=== PATIENT | male | born 1970 | race Caucasian/White ===

== ENCOUNTER 2017-11-09 10:36 | Emergency (ER) | payer SELFPAY ==
[~2017-11-09] VITALS: Ht 182.9 cm; Wt 136.6 kg
[2017-11-09 10:38] VITALS: BP 165/85; PULSE 96; RESP 20; TEMP 102.8; O2SAT 95
--- NOTE | 2017-11-09 10:59 | PD ---
HPI Chief Complaint: Cold / Flu Symptoms Time Seen by Provider: 10:49 Travel History International Travel<30 days: No Contact w/Intl Traveler<30days: No Traveled to known affect area: No History of Present Illness HPI This 47-year-old male complaining of fever in cough. Abdomen sick for about 2 days. He is having some sharp chest pain it is worse when he coughs. Has been taking [id number] Delsym for cough without much response. He has no history of hypertension or diabetes. He has never smoked. He is complaining of generalized weakness and fever. PFSH Past Medical History Anemia: Yes Arthritis: Yes Asthma: No Autoimmune Disease: No Blood Disorders: No Anxiety: Yes Depression: Yes Heart Rhythm Problems: No Cancer: No Cardiovascular Problems: No High Cholesterol: No Chemotherapy: No Chest Pain: No Congestive Heart Failure: No COPD: No Cerebrovascular Accident: No Diabetes: No Diminished Hearing: No Endocrine: No Gastrointestinal Disorders: Yes (HIATAL HERNIA) GERD: Yes Glaucoma: No Genitourinary: No Headaches: Yes Hepatitis: No Hiatal Hernia: No Hypertension: No Immune Disorder: Yes (was on prednisone 5x in the last year for pnuemonia) Kidney Stones: No Musculoskeletal: Yes (ARTHROSCOPY RIGHT KNEE & LEFT SHOULDER) Respiratory: Yes (Chronic Bronchitis, Pneumonia ) Migraines: Yes Myocardial Infarction: No Radiation Therapy: No Renal Failure: No Seizures: No Sleep Apnea: Yes Thyroid Disease: No Ulcer: No Past Surgical History Abdominal Surgery: Yes AICD: No Appendectomy: Yes Cardiac Surgery: No Cholecystectomy: Yes Ear Surgery: No Endocrine Surgery: No Eye Surgery: No Genitourinary Surgery: No Gynecologic Surgery: No Joint Replacement: No Oral Surgery: Yes (nose surgery; WISDOM TEETH REMOVED) Pacemaker: No Thoracic Surgery: No Other Surgery: Yes (SURGERY TO OPEN SEPTUM MORE) Social History Alcohol Use: No Tobacco Use: No Substance Use: No Allergies-Medications (Allergen,Severity, Reaction): Coded Allergies: alcohol (Verified Allergy, Intermediate, Anaphylaxis, 11/09/17) bee venom protein (honey bee) (Unverified Allergy, Mild, Anaphylaxis, 11/09) sunscreen (Unverified Allergy, Unknown, Psychosis, 11/09/17) Instant Dry Sunscreen Uncoded Allergies: conch (Adverse Reaction, Intermediate, N&V., 11/09/17) Reported Meds & Prescriptions Reported Meds & Active Scripts Active No Active Prescriptions or Reported Medications Review of Systems General / Constitutional: Positive: Fever, Chills HENT: Positive: Headaches Cardiovascular: Positive: Chest Pain or Discomfort, No: Palpitations, Irregular Rhythm Respiratory: Positive: Cough Gastrointestinal: Positive: Nausea Genitourinary: No: Urgency, Frequency Skin: No Rash, No Itching Neurologic: Positive: Weakness Psychiatric: No: Anxiety, Depression Hematologic/Lymphatic: No: Easy Bruising Physical Exam Narrative GENERAL: Well-developed male. Temperature 102.8 SKIN: Focused skin assessment warm/dry. HEAD: Atraumatic. Normocephalic. EYES: Pupils equal and round. No scleral icterus. No injection or drainage. ENT: No nasal bleeding or discharge. Mucous membranes pink and moist. NECK: Trachea midline. No JVD. CARDIOVASCULAR: Regular rate and rhythm. No murmur appreciated. RESPIRATORY: No accessory muscle use. Clear to auscultation. Breath sounds equal bilaterally. GASTROINTESTINAL: Abdomen soft, non-tender, nondistended. Hepatic and splenic margins not palpable. MUSCULOSKELETAL: No obvious deformities. No clubbing. No cyanosis. No edema. NEUROLOGICAL: Awake and alert. No obvious cranial nerve deficits. Motor grossly within normal limits. Normal speech. PSYCHIATRIC: Appropriate mood and affect; insight and judgment normal. Data Data Last Documented VS Vital Signs Date Time Temp Pulse Resp B/P (MAP) Pulse Ox O2 Delivery O2 Flow Rate FiO2 11/09/17 12:13 100.0 88 16 137/77 (97) 97 Room Air Orders Orders Electrocardiogram (11/09/17 10:54) Complete Blood Count With Diff (11/09/17 10:54) Comprehensive Metabolic Panel (11/09/17 10:54) Troponin I (11/09/17 10:54) Magnesium (Mg) (11/09/17 10:54) Sodium Chlor 0.9% 1000 Ml Inj (Ns 1000 M (11/09/17 11:00) Sodium Chlor 0.9% 1000 Ml Inj (Ns 1000 M (11/09/17 11:00) Ketorolac Inj (Toradol Inj) (11/09/17 11:00) Acetaminophen (Tylenol) (11/09/17 11:00) Influenzae A/B Antigen (11/09/17 10:56) Chest, Single Ap (11/09/17 11:33) Ondansetron Inj (Zofran Inj) (11/09/17 13:00) Hydromorphone Pf Inj (Dilaudid Pf Inj) (11/09/17 13:00) Oseltamivir (Tamiflu) (11/09/17 13:00) Labs Laboratory Tests Test 11/09/17 11:15 White Blood Count 5.9 TH/MM3 Red Blood Count 5.19 MIL/MM3 Hemoglobin 15.4 GM/DL Hematocrit 46.5 % Mean Corpuscular Volume 89.7 FL Mean Corpuscular Hemoglobin 29.8 PG Mean Corpuscular Hemoglobin Concent 33.2 % Red Cell Distribution Width 13.2 % Platelet Count 181 TH/MM3 Mean Platelet Volume 7.9 FL Neutrophils (%) (Auto) 68.8 % Lymphocytes (%) (Auto) 15.8 % Monocytes (%) (Auto) 14.2 % Eosinophils (%) (Auto) 0.2 % Basophils (%) (Auto) 1.0 % Neutrophils # (Auto) 4.1 TH/MM3 Lymphocytes # (Auto) 0.9 TH/MM3 Monocytes # (Auto) 0.8 TH/MM3 Eosinophils # (Auto) 0.0 TH/MM3 Basophils # (Auto) 0.1 TH/MM3 CBC Comment DIFF FINAL Differential Comment Blood Urea Nitrogen 11 MG/DL Creatinine 1.10 MG/DL Random Glucose 109 MG/DL Total Protein 7.8 GM/DL Albumin 3.5 GM/DL Calcium Level 8.5 MG/DL Magnesium Level 1.7 MG/DL Alkaline Phosphatase 57 U/L Aspartate Amino Transf (AST/SGOT) 64 U/L Alanine Aminotransferase (ALT/SGPT) 93 U/L Total Bilirubin 0.4 MG/DL Sodium Level 137 MEQ/L Potassium Level 3.5 MEQ/L Chloride Level 101 MEQ/L Carbon Dioxide Level 26.6 MEQ/L Anion Gap 9 MEQ/L Estimat Glomerular Filtration Rate 72 ML/MIN Troponin I LESS THAN 0.02 NG/ML MDM Medical Decision Making Medical Screen Exam Complete: Yes Emergency Medical Condition: Yes Medical Record Reviewed: Yes Differential Diagnosis Differential includes influenza, pneumonia, chest pain Narrative Course EKG shows normal sinus rhythm. He did have quite a high fever complaint of pleuritic chest pain. Chest x-rays negative for pneumonia. He does have diffuse myalgias also I believe he has influenza. His flu test as negative but I am going to put him on Tamiflu in also prescribed some medication for his pleuritic pain. Tylenol an Toradol has not provided much relief Diagnosis Primary Impression: Influenza Additional Instructions: Tylenol every 4 hours for fever, ibuprofen every 6 hours for fever Scripts Hydrocodone-Acetaminophen (Hydrocodone-Acetaminophen) 7.5-300 Mg Tab 1 TAB PO Q4H Y for PAIN, #10 TAB 0 Refills Prov: Bar Hernandes MD 11/09/17 Oseltamivir (Tamiflu) 75 Mg Cap 75 MG PO BID for Mgmt Viral Infection for 5 Days, #10 CAP 0 Refills Prov: Bar Hernandes MD 11/09/17 Disposition: 01 DISCHARGE HOME Condition: Stable Bar Hernandes MD Nov 09, 2017 10:59
[2017-11-09] MEDS ORDERED: KETOROLAC TROMETHAMINE 30 MG/ML (IVP) VIAL IV PUSH ONE (11:00)
[2017-11-09] MEDS ORDERED: ACETAMINOPHEN 500 MG CPLT PO ONE (11:00)
[2017-11-09] MEDS ORDERED: SODIUM CHLOR 0.9% 1000 ML INJ 1,000 ML IV ONE ×2 (11:00)
[2017-11-09 11:21] LABS: AUTOMATED NEUTROPHIL # 4.1 TH/MM3 (1.8-7.7); BASOPHIL # 0.1 TH/MM3 (0-0.2); EOSINOPHIL % 0.2 % (0.0-4.0); HEMATOCRIT 46.5 % (39.0-51.0); HEMOGLOBIN 15.4 GM/DL (13.0-17.0); LYMPH % 15.8 % (9.0-44.0); LYMPHOCYTE # 0.9 TH/MM3 (1.0-4.8); MEAN CELL VOLUME 89.7 FL (80.0-100.0); MEAN CORPUSCULAR HEMOGLOBIN 29.8 PG (27.0-34.0); MEAN CORPUSCULAR HGB CONC 33.2 % (32.0-36.0); MEAN PLATELET VOLUME 7.9 FL (7.0-11.0); MONO % 14.2 % (0.0-8.0); MONOCYTE # 0.8 TH/MM3 (0-0.9); NEUT % 68.8 % (16.0-70.0); PLATELET COUNT 181 TH/MM3 (150-450); RED BLOOD COUNT 5.19 MIL/MM3 (4.50-5.90); RED CELL DISTRIBUTION WIDTH 13.2 % (11.6-17.2); WHITE BLOOD COUNT 5.9 TH/MM3 (4.0-11.0)
[2017-11-09 11:27] LABS: CHLORIDE 101 MEQ/L (98-107); SODIUM (NA) 137 MEQ/L (136-145)
[2017-11-09 11:30] LABS: CALCIUM 8.5 MG/DL (8.5-10.1)
[2017-11-09 11:31] LABS: ALBUMIN 3.5 GM/DL (3.4-5.0); BICARBONATE 26.6 MEQ/L (21.0-32.0); BLOOD UREA NITROGEN 11 MG/DL (7-18); GLUCOSE,RANDOM 109 MG/DL (74-106); MAGNESIUM 1.7 MG/DL (1.5-2.5)
[2017-11-09 11:32] VITALS: BP 137/77; PULSE 90; RESP 20; TEMP 103; O2SAT 97
[2017-11-09 11:34] LABS: ALT (GPT) 93 U/L (12-78); AST (GOT) 64 U/L (15-37); GLOMERULAR FILTRATION RATE 72 ML/MIN (>89)
[2017-11-09 11:35] LABS: TOTAL BILIRUBIN ADULT 0.4 MG/DL (0.2-1.0); TOTAL PROTEIN 7.8 GM/DL (6.4-8.2)
[2017-11-09 11:37] LABS: ALKALINE PHOSPHATASE 57 U/L (45-117)
[2017-11-09 11:39] LABS: TROPONIN I LESS THAN 0.02 NG/ML (0.02-0.05)
--- NOTE | 2017-11-09 12:00 | RADRPT ---
EXAM DATE/TIME: 11/09/2017 11:40 [facility] COMPARISON: No previous studies available for comparison. INDICATIONS : Cough MEDICAL HISTORY : None. SURGICAL HISTORY : None. ENCOUNTER: Initial ACUITY: 2 days PAIN SCORE: 10/10 LOCATION: Bilateral chest FINDINGS: A single view of the chest demonstrates the lungs to be symmetrically aerated without evidence of mas s, infiltrate or effusion. The cardiomediastinal contours are unremarkable. Osseous structures are intact. CONCLUSION: Normal examination. Healed left third rib fracture. Camron Garcia MD on November 09, 2017 at 11:56 Board Certified Radiologist. This report was verified electronically.
[2017-11-09 12:13] VITALS: BP 137/77; PULSE 88; RESP 16; TEMP 100; O2SAT 97
[2017-11-09] MEDS ORDERED: HYDR-2376 PO (12:54)
[2017-11-09] MEDS ORDERED: OSEL75 PO (12:54)
[2017-11-09] MEDS ORDERED: HYDROmorphone HCL PF 1 MG/ML VIAL IV PUSH ONE (13:00)
[2017-11-09] MEDS ORDERED: ONDANSETRON HCL 4 MG/2 ML VIAL IV PUSH ONE (13:00)
[2017-11-09] MEDS ORDERED: OSELTAMIVIR PHOSPHATE 75 MG CAP PO ONE (13:00)
--- NOTE | 2017-11-10 23:23 | EKG ---
Date Performed: 11/09/2017 Time Performed: 11:03:42 PTAGE: 47 years EKG: Sinus rhythm INCOMPLETE RIGHT BUNDLE BRANCH BLOCK BORDERLINE ECG PREVIOUS TRACING : 06/23/2002 08.29 Since previous tracing, no significant change noted DOCTOR: Kavon Angelo Interpretating Date/Time 11/10/2017 23:22:05
== END 2017-11-09 13:17 | disposition home or self-care (01) ==
LOC: PHED 10:36
DX: J11.1 Influenza due to unidentified influenza virus with other respiratory manifestations (principal); R50.9 Fever, unspecified; R05 Cough; R07.81 Pleurodynia; M79.1 Myalgia; R11.0 Nausea; R53.1 Weakness; R94.31 Abnormal electrocardiogram [ECG] [EKG]; G47.30 Sleep apnea, unspecified; Z86.2 Personal history of diseases of the blood and blood-forming organs and certain disorders involving the immune mechanism; Z87.39 Personal history of other diseases of the musculoskeletal system and connective tissue; Z86.59 Personal history of other mental and behavioral disorders; Z87.19 Personal history of other diseases of the digestive system; Z86.69 Personal history of other diseases of the nervous system and sense organs
CPT/HCPCS: 71045; 80053; 83735; 84484; 85025; 87804; 93005; 96361; 96374; 96375; 99285; J1170; J1885; J2405; J7030